=== PATIENT | male | born 1990 | race Caucasian/White ===

== ENCOUNTER 2022-05-29 13:05 | Emergency (ER) | payer MEDICAID, OTHER, SELFPAY ==
[~2022-05-29] VITALS: Ht 180.3 cm; Wt 63.6 kg
[2022-05-29 14:31] LABS: BASO # 0.1 10^3/uL (0.0-0.2); BASO % 0.4 % (0.0-1.0); EOS # 0.4 10^3/uL (0.0-0.5); EOS % 2.6 % (0.0-3.0); HEMATOCRIT 42.1 % (42.0-52.0); HEMOGLOBIN 14.4 g/dl (13.5-17.5); LYMPH # 0.9 10^3/uL (1.5-5.0); LYMPH % 5.8 % (24.0-44.0); MEAN CORPUSCULAR HEMOGLOBIN 30.6 pg (27.0-33.0); MEAN CORPUSCULAR HGB CONC 34.2 g/dl (32.0-36.5); MEAN CORPUSCULAR VOLUME 89.4 fl (80.0-96.0); MONO # 0.9 10^3/uL (0.0-0.8); MONO % 6.2 % (2.0-8.0); NEUTROPHILS # 12.7 10^3/uL (1.5-8.5); NEUTROPHILS % 84.3 % (36.0-66.0); PLATELET COUNT, AUTOMATED 216 10^3/uL (150-450); RED BLOOD COUNT 4.71 10^6/uL (4.30-6.10); WHITE BLOOD COUNT 15.1 10^3/uL (4.0-10.0)
[2022-05-29 14:35] LABS: INR 0.94; PROTHROMBIN TIME 12.8 SECONDS (12.5-14.5)
[2022-05-29 14:43] LABS: CK-MB VALUE MASS 3.1 NG/ML (<3.6)
[2022-05-29 14:45] LABS: CPK CREATINE PHOSPHOKINASE 257 U/L (46-171)
[2022-05-29] MEDS ORDERED: MORPHINE 4 MG/ML 1ML VIAL IV ONE (14:45)
[2022-05-29] MEDS ORDERED: ISOVUE-370 76% 100ML VIAL As Ordered ONE (14:50)
[2022-05-29 14:55] LABS: ALBUMIN 4.1 G/DL (3.2-5.2); ALKALINE PHOSPHATASE 51 U/L (46-116); ALT/SGPT 112 U/L (7.0-40); BILIRUBIN,DIRECT 0.3 MG/DL (<0.4); BILIRUBIN,TOTAL 0.7 MG/DL (0.3-1.2); BLOOD UREA NITROGEN 22 MG/DL (9-23); CALCIUM LEVEL 8.6 MG/DL (8.5-10.1); CARBON DIOXIDE LEVEL 30 MMOL/L (20-31); CHLORIDE LEVEL 104 MMOL/L (98-107); CREATININE FOR GFR 1.05 MG/DL (0.70-1.30); GLOMERULAR FILTRATION RATE > 60.0 (>60); GLUCOSE, FASTING 131 MG/DL (60-100); POTASSIUM SERUM 3.6 MMOL/L (3.5-5.1); SODIUM LEVEL 138 MMOL/L (136-145); TOTAL PROTEIN 6.5 G/DL (5.7-8.2)
[2022-05-29 15:10] LABS: AST/SGOT 126 U/L (<34)
[2022-05-29] MEDS ORDERED: NS 1,000 ML IV ONE (15:50)
[2022-05-29 16:11] VITALS: BP 136/72
[2022-05-29 16:11] LABS: RSV AMPLIFICATION NEGATIVE (NEGATIVE)
== END 2022-05-29 16:12 | disposition short-term general hospital (02) ==
LOC: M ED 13:05 → EDBD 13:05 → M ED 16:12
DX: S36.892A Contusion of other intra-abdominal organs, initial encounter (principal); S22.41XA Multiple fractures of ribs, right side, initial encounter for closed fracture; S27.2XXA Traumatic hemopneumothorax, initial encounter; S12.500A Unspecified displaced fracture of sixth cervical vertebra, initial encounter for closed fracture; S12.600A Unspecified displaced fracture of seventh cervical vertebra, initial encounter for closed fracture; W13.2XXA Fall from, out of or through roof, initial encounter; Y99.0 Civilian activity done for income or pay
CPT/HCPCS: 70450; 71045; 71260; 72125; 72128; 72131; 74177; 80047; 80048; 80076; 82550; 82553; 84484; 85025; 85610; 85730; 86850; 86900; 86901; 87631; 93041; 94760; 96374; 99285; J2270